=== PATIENT | male | born 1995 | race Caucasian/White ===

== ENCOUNTER 2016-12-10 04:45 | Emergency (ER) | payer SELFPAY ==
[~2016-12-10] VITALS: Ht 188 cm; Wt 74.8 kg
--- NOTE | 2016-12-10 04:45 | NUR ---
BIB [facility]
[2016-12-10 04:51] VITALS: BP 136/77
--- NOTE | 2016-12-10 05:07 | NUR ---
Patient being evaluated by physician.
--- NOTE | 2016-12-10 05:10 | NUR ---
PATIENT BIB [facility]. PATIENT EXAMINED BY DR. MAYA. PATIENT MEDICALLY CLEARED AND RELEASED IN CUSTODY IN STABLE CONDITION. ORIGINAL PRE-BOOK FORM GIVEN TO OFFICER.
--- NOTE | 2016-12-10 05:12 | NUR ---
Patient discharged with v/s stable. Written and verbal after care instructions given and explained. Patient verbalized understanding. Ambulatory with steady gait. All questions addressed prior to discharge. Advised to follow up with PMD.
[2016-12-10 05:13] VITALS: BP 136/77
== END 2016-12-10 05:13 ==
LOC: MED 04:45
DX: Z02.89 Encounter for other administrative examinations (principal); S40.212A Abrasion of left shoulder, initial encounter; R03.0 Elevated blood-pressure reading, without diagnosis of hypertension; V49.49XA Driver injured in collision with other motor vehicles in traffic accident, initial encounter; Y93.89 Activity, other specified; Y92.488 Other paved roadways as the place of occurrence of the external cause; Y99.8 Other external cause status
CPT/HCPCS: 99283